=== PATIENT | female | born 1950 | race Caucasian/White ===

== ENCOUNTER 2017-12-31 18:48 | Emergency (ER) | payer MEDICARE, BC ==
[2017-12-31] MEDS ORDERED: Albuterol/Ipratropium 3.0-0.5 MG/3 ML Neb Soln NEB ONE (19:33)
[2017-12-31] MEDS ORDERED: Sodium Chloride 0.9% 1,000 ML IV ONE (20:03)
[2017-12-31] MEDS ORDERED: methylPREDNISolone Sodium Succinate 125 MG/2 ML SDV IVPUSH ONE (20:03)
--- NOTE | 2017-12-31 20:06 | EDM.PDOC ---
ED HPI GENERAL MEDICAL PROBLEM - General Chief Complaint: Respiratory Problem Stated Complaint: SINUS,[id number],CHEST PAINS, [id number] Time Seen by Provider: 12/31/17 20:04 Source of Information: Reports: Patient History Limitations: Reports: No Limitations - History of Present Illness INITIAL COMMENTS - FREE TEXT/NARRATIVE: few weeks h/o worsening cough with F/C on-off. smoker. 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 ED EXAM, GENERAL - Physical Exam Exam: See Below Exam Limited By: No Limitations General Appearance: Alert, WD/WN, Mild Distress, Other (cough spasms) Ears: Hearing Grossly Normal Throat/Mouth: Normal Voice, No Airway Compromise Head: Atraumatic Neck: Non-Tender, Full Range of Motion Respiratory/Chest: No Accessory Muscle Use, Decreased Breath Sounds, Rales, Rhonchi Cardiovascular: Regular Rate, Rhythm GI/Abdominal: Soft, Non-Tender Neurological: Alert, Oriented, Normal Cognition, Normal Gait, No Motor/Sensory Deficits Psychiatric: Normal Affect, Normal Mood Skin Exam: Warm, Dry, Normal Color Lymphatic: No Adenopathy Course - Vital Signs Last Recorded V/S: Last Vital Signs Temp 37.1 C 12/31/17 19:47 Pulse 93 12/31/17 19:47 Resp 20 12/31/17 19:47 BP 97/70 12/31/17 19:47 Pulse Ox 100 12/31/17 19:47 - Orders/Labs/Meds Orders: Active Orders 24 hr Category Date Time Status RT Aerosol Therapy [RC] ASDIRECTED Care 12/31/17 19:33 Active CULTURE BLOOD [BC] Stat Lab 12/31/17 20:07 Received Sodium Chloride 0.9% [Normal Saline] 1,000 ml Med 12/31/17 20:03 Active IV .BOLUS Medication Orders Sodium Chloride (Normal Saline) 1,000 mls @ 999 mls/hr IV .BOLUS ONE Stop: 12/31/17 21:03 Last Admin: 12/31/17 20:09 Dose: 999 mls/hr Labs: Laboratory Tests 12/31/17 12/31/17 12/31/17 Range/Units 20:07 20:07 20:07 WBC 13.7 H (5.0-10.0) 10^3/uL RBC 4.52 (4.2-5.4) 10^6/uL Hgb 13.1 (12.0-16.0) g/dL Hct 39.1 (37.0-47.0) % MCV 86.5 (80-100) fL MCH 29.0 (27.0-34.0) pg MCHC 33.5 (33.0-35.0) g/dL Plt Count 266 (150-450) 10^3/uL Neut % (Auto) 75.4 H (42.2-75.2) % Lymph % (Auto) 14.3 L (20.5-50.1) % [place] % (Auto) 10.1 H (2-8) % Eos % (Auto) 0.1 L (1.0-3.0) % Baso % (Auto) 0.1 (0.0-1.0) % Sodium 131 L (135-145) mmol/L Potassium 3.8 (3.6-5.0) mmol/L Chloride 96 L (101-111) mmol/L Carbon Dioxide 27.0 (21.0-31.0) mmol/L Anion Gap 11.8 BUN 6 L (7-18) mg/dL Creatinine 0.8 (0.6-1.3) mg/dL Est Cr Clr Drug Dosing 56.11 mL/min Estimated GFR (MDRD) > 60 BUN/Creatinine Ratio 7.50 Glucose 156 H (74-105) mg/dL Lactic Acid 0.9 (0.5-2.2) mmol/L Calcium 9.0 (8.4-10.2) mg/dl Total Bilirubin 1.0 (0.2-1.0) mg/dL AST 23 (10-42) IU/L ALT 20 (10-60) IU/L Alkaline Phosphatase 58 (42-121) IU/L Total Protein 7.6 (6.7-8.2) g/dl Albumin 3.6 (3.2-5.5) g/dl Globulin 4.0 Albumin/Globulin Ratio 0.90 Meds: Medications Generic Name Dose Route Start Last Admin Trade Name Freq PRN Reason Stop Dose Admin Sodium Chloride 1,000 mls @ 999 mls/hr 12/31/17 20:03 12/31/17 20:09 Normal Saline IV 12/31/17 21:03 999 mls/hr .BOLUS ONE Administration Discontinued Medications Generic Name Dose Route Start Last Admin Trade Name Freq PRN Reason Stop Dose Admin Albuterol/Ipratropium 3 ml 12/31/17 19:33 12/31/17 19:44 Duoneb 3.0-0.5 Mg/3 Ml NEB 12/31/17 19:34 3 ml ONETIME ONE Administration Ceftriaxone Sodium 1 gm 12/31/17 20:52 12/31/17 20:57 Rocephin IVPUSH 12/31/17 20:53 1 gm ONETIME ONE Administration Methylprednisolone Sodium Succinate 125 mg 12/31/17 20:03 12/31/17 20:11 Solu-Medrol IVPUSH 12/31/17 20:04 125 mg ONETIME ONE Administration Promethazine HCl/Codeine 5 ml 12/31/17 20:57 Phenergan With Codeine PO 12/31/17 20:58 ONETIME ONE - Re-Assessments/Exams Free Text/Narrative Re-Assessment/Exam: 12/31/17 20:06 s/p duoneb = better 70% 12/31/17 21:00 results discussed with pt who prefers to go home and will return prn. Departure - Departure Time of Disposition: 21:00 Disposition: Home, Self-Care 01 Condition: Good Clinical Impression: Pneumonia Qualifiers: Pneumonia type: due to unspecified organism Laterality: right Lung location: lower lobe of lung Qualified Code(s): J18.1 - Lobar pneumonia, unspecified organism - Discharge Information Instructions: Community-Acquired Pneumonia, Adult, [id number] Forms: ED Department Discharge Additional Instructions: 1) rest 2) don't sleep flat at night 3) take neb treatment 3 times daily as needed for cough 4) drink lots of liquids 5) return if there is any change or concern rx given; z-gabe medrol dospak phenergan codeine syrup qid prn albuterol 2.5mg solution tid prn - My Orders Last 24 Hours: My Active Orders 12/31/17 19:33 RT Aerosol Therapy [RC] ASDIRECTED 12/31/17 20:03 Sodium Chloride 0.9% [Normal Saline] 1,000 ml IV .BOLUS 12/31/17 20:07 CULTURE BLOOD [BC] Stat - Assessment/Plan Last 24 Hours: My Active Orders 12/31/17 19:33 RT Aerosol Therapy [RC] ASDIRECTED 12/31/17 20:03 Sodium Chloride 0.9% [Normal Saline] 1,000 ml IV .BOLUS 12/31/17 20:07 CULTURE BLOOD [BC] Stat
[2017-12-31 20:33] LABS: ANION GAP 11.8; CHLORIDE,CL 96 mmol/L (101-111); SODIUM,NA 131 mmol/L (135-145)
[2017-12-31] MEDS ORDERED: cefTRIAXone 1 GM Vial IVPUSH ONE (20:52)
[2017-12-31] MEDS ORDERED: Codeine/Promethazine 10-6.25 MG/5 ML Syrup 5 ML UD Cup PO ONE (20:57)
== END 2017-12-31 21:18 | disposition home or self-care (01) ==
LOC: DL.ED 18:48
DX: J18.9 Pneumonia, unspecified organism (principal); F17.210 Nicotine dependence, cigarettes, uncomplicated
CPT/HCPCS: 36415; 71046; 80053; 83605; 85025; 87040; 94640; 96361; 96374; 96375; 99284; A9270; J0696; J2930; J7030; 99283; J7620-GY